=== PATIENT | female | born 1995 | race Caucasian/White ===

== ENCOUNTER 2017-02-13 10:59 | Emergency (ER) | payer MEDICAID, OTHER ==
[~2017-02-13] VITALS: Wt 55.0 kg
--- NOTE | 2017-02-13 11:17 | ERA ---
ER Documentation Chief Complaint Date/Time DATE: 02/13/17 TIME: 11:16 Chief Complaint PT SENT PER PMD FOR IUD PROBLEM, NO BLEEDING HPI The patient is a 21-year-old female, presenting to the ER because of pelvic pain when she woke up this morning. She went to see her physician who sent her to the ER. She had an IUD for about a year, denies previous similar symptoms, denies dysuria, diarrhea, abdominal pain, vomiting. She does not smoke or drink Past medical/surgical history: None ROS All systems reviewed and are negative except as per history of present illness. Allergies Allergies: Coded Allergies: No Known Allergy (Unverified , 10/31/14) PMhx/Soc History of Surgery: No Anesthesia Reaction: No Hx Neurological Disorder: No Hx Respiratory Disorders: No Hx Cardiac Disorders: No Hx Psychiatric Problems: No Hx Miscellaneous Medical Probl: No Hx Alcohol Use: No Hx Substance Use: No Hx Tobacco Use: No Physical Exam Vitals Vital Signs Date Time Temp Pulse Resp B/P Pulse Ox O2 Delivery O2 Flow Rate FiO2 02/13/17 11:02 99.0 87 17 112/63 98 Physical Exam Const: No acute distress. Head: Atraumatic. Eyes: Normal Conjunctiva. ENT: Normal External Ears, Nose and Mouth. Neck: Full range of motion. No meningismus. Resp: Clear to auscultation bilaterally. Cardio: Regular rate and rhythm. Abd: Soft, non distended, normal bowel sounds, minimal suprapubic tenderness, no rigidity, rebound, CVA tenderness Skin: No petechiae or rashes. Back: No midline or flank tenderness. Ext: No cyanosis, or edema. Neur: Awake and alert. No focal deficit Psych: Normal Mood and Affect. Results 24 hrs Laboratory Tests Test 02/13/17 11:32 Bedside Urine pH (LAB) 6.5 Bedside Urine Protein (LAB) Negative Bedside Urine Glucose (UA) Negative Bedside Urine Ketones (LAB) Negative Bedside Urine Blood Negative Bedside Urine Nitrite (LAB) Negative Bedside Urine Leukocyte Esterase (L Trace Procedures/[address] [address] Radiology Main Line: [phone] DIAGNOSTIC IMAGING REPORT Patient: NOEMY QURESHI : 1995 Age: 21 Sex: F MR #: [id number] DOS: 02/13/17 1120 Ordering MD: JOSH MEJIA MD Location: [facility] Room/Bed: PROCEDURE: US Pelvis CLINICAL INDICATION: pelvic pain TECHNIQUE: Multiple sonographic images of the pelvis were obtained utilizing a transabdominal and endovaginal technique. The images were reviewed on a PACS workstation. COMPARISON: None. LMP: 02/01/2017 FINDINGS: The uterus measures 8.3 x 3.8 x 4.9 cm. The endometrial echo complex measures 7 mm in thickness. An appropriately positioned intrauterine device is noted. The right ovary measures 3.0 x 1.7 x 2.0 cm. The left ovary measures 3.8 x 2.4 x 2.9 cm. There is normal vascular flow in both ovaries. No significant ovarian lesions are seen. No significant pelvic free fluid is identified. IMPRESSION: An appropriately positioned intrauterine device is noted. Otherwise, unremarkable pelvic ultrasound. RPTAT: EE Physician Dominga Date Time Electronically viewed and signed by Physician Dominga on 02/13/2017 13:28 RA/ CC: JOSH MEJIA MD MEDICAL MAKING DECISION: The patient is a 21-year-old female, presenting with acute pelvic pain of unclear etiology. The differential diagnoses considered include but are not limited to uterine perforation, cystitis, PID, ovarian cyst, endometriosis, fibroids, appendicitis. Departure Diagnosis: Primary Impression: Pelvic pain Condition: Good Comments I discussed the findings with the patient. I advised the patient to follow-up with the instructional facilitator in about 1-2 days, sooner if needed and return if any concern. JOSH MEJIA MD Feb 13, 2017 11:17
[2017-02-13 11:28] LABS: URINE BLOOD (Dip) POC Negative (NEGATIVE)
--- NOTE | 2017-02-13 13:28 | RADRPT ---
PROCEDURE: US Pelvis CLINICAL INDICATION: pelvic pain TECHNIQUE: Multiple sonographic images of the pelvis were obtained utilizing a transabdominal and endovaginal technique. The images were reviewed on a PACS workstation. COMPARISON: None. LMP: 02/01/2017 FINDINGS: The uterus measures 8.3 x 3.8 x 4.9 cm. The endometrial echo complex measures 7 mm in thickness. A n appropriately positioned intrauterine device is noted. The right ovary measures 3.0 x 1.7 x 2.0 cm. The left ovary measures 3.8 x 2.4 x 2.9 cm. There is no rmal vascular flow in both ovaries. No significant ovarian lesions are seen. No significant pelvic free fluid is identified. IMPRESSION: An appropriately positioned intrauterine device is noted. Otherwise, unremarkable pelvic ultrasound. RPTAT: EE Physician Dominga Date Time Electronically viewed and signed by Physician Dominga on 02/13/2017 13:28 /
== END 2017-02-13 14:07 | disposition home or self-care (01) ==
LOC: FTE 10:59
DX: R10.2 Pelvic and perineal pain (principal)
CPT/HCPCS: 76856; 81003

== ENCOUNTER 2017-04-04 12:54 | Emergency (ER) | END 2017-04-04 15:12 | disposition home or self-care (01) | DX: O20.0 Threatened abortion (principal); Z3A.08 8 weeks gestation of pregnancy | CPT/HCPCS: 36415; 76801; 81001; 84702; 85025; 86900; 86901; 87086; J7030; Z7502 ==

== ENCOUNTER 2017-06-25 12:38 | Outpatient (CLI) | payer MEDICAID ==
[~2017-06-25] VITALS: Ht 160 cm; Wt 52.7 kg
[~2017-06-25 12:38] MED LIST: ACET500C5 PO; CEPH-443 PO
--- NOTE | 2017-06-25 13:13 | RADRPT ---
PROCEDURE: US OB. CLINICAL INDICATION: DFM , pain TECHNIQUE: Transabdominal views of the pelvis are available for review. COMPARISON: 04/04/17 FINDINGS: There is a single intrauterine gestation in a transverse maternal right position. The heart r ate is noted at 140 bpm. The placenta is anterior. The MVP measures 6.4 cm. RPTAT: AA IMPRESSION: Normal MVP. .Zev Travis MD, MD Date Time Electronically viewed and signed by .Zev Travis MD, MD on 06/25/2017 13:13 .S/
[2017-06-25] MEDS ORDERED: PREN-93 PO (14:27)
--- NOTE | 2017-06-25 14:30 | QN ---
Documentation Comment g1 20 weeks co of DFM and WELLS vss exam wnl a/p iup 20 weeks to ER for eval per patients ob doc GARRETT SENA MD Jun 25, 2017 14:30
[2017-06-25 14:31] VITALS: Ht 160 cm; Wt 52.7 kg
[2017-06-25 14:32] VITALS: BP 112/71; PULSE 93; RESP 18
== END 2017-06-25 14:30 | disposition home or self-care (01) ==
LOC: OBT 12:38 → L-D 12:39 → OBT 14:30
PROVIDERS: ATTEND Obstetrics & Gynecology
DX: O36.8120 Decreased fetal movements, second trimester, not applicable or unspecified (principal); O26.892 Other specified pregnancy related conditions, second trimester; R51 Headache; Z3A.20 20 weeks gestation of pregnancy
CPT/HCPCS: 76815; Z7500; G0463

== ENCOUNTER 2017-07-23 22:37 | Outpatient (CLI) | payer MEDICAID ==
[~2017-07-23] VITALS: Ht 160 cm; Wt 54.5 kg
[~2017-07-23 22:37] MED LIST changes: -ACET500C5 PO; -CEPH-443 PO; +PREN-93 PO
[2017-07-23 22:47] VITALS: Ht 160 cm; Wt 54.5 kg
[2017-07-23 23:09] VITALS: BP 110/67; PULSE 82; RESP 20
[2017-07-23 23:42] LABS: BASOPHIL # 0.1 10^3/ul (0.0-0.1); BASOPHILS % 0.5 % (0.0-2.0); EOSINOPHILS # 0.1 10^3/ul (0.0-0.5); EOSINOPHILS % 0.9 % (0.0-7.0); HEMATOCRIT 31.6 % (37.0-47.0); HEMOGLOBIN 10.8 g/dl (12.0-16.0); LYMPHOCYTES # 3.8 10^3/ul (0.8-2.9); MEAN CORPUSCULAR HEMOGLOBIN 29.7 pg (29.0-33.0); MEAN CORPUSCULAR HGB CONC 34.2 g/dl (32.0-37.0); MEAN CORPUSCULAR VOLUME 86.8 fl (82.0-101.0); MEAN PLATELET VOLUME 10.4 fl (7.4-10.4); MONOCYTE # 0.8 10^3/ul (0.3-0.9); MONOCYTES % 6.6 % (0.0-11.0); NEUTROPHIL # 7.8 10^3/ul (1.6-7.5); NEUTROPHILS % 60.9 % (39.0-77.0); PLATELET COUNT 262 10^3/UL (140-415); RED BLOOD COUNT 3.64 10^6/ul (4.20-5.40); RED CELL DISTRIBUTION WIDTH 13.3 % (11.5-14.5); WHITE BLOOD COUNT 12.8 10^3/ul (4.8-10.8)
--- NOTE | 2017-07-23 23:46 | RADRPT ---
PROCEDURE: US OB placenta CLINICAL INDICATION: Vaginal bleeding. Clinical estimate gestational age is 24 weeks 4 days with estimated date of delivery 11/08/2017 TECHNIQUE: Multiple sonographic images of the pelvis were obtained. The images were reviewed on a PACS workstation. COMPARISON: US PELVIS 06/25/2017 FINDINGS: The cervix is closed with a length of 4 cm on transvaginal ultrasound. There is a single live intrauterine gestation. Cardiac activity is present with 152 beats per minut e. There is a cephalic position. . The placenta is anterior and grade 2. There is no evidence for an abruption. IMPRESSION: Single live intrauterine gestation. Placenta anterior and grade 2. No evidence of placental abruptio n. RPTAT: HJES .Balwinder Sherman MD, Date Time Electronically viewed and signed by .Balwinder Sherman MD, on 07/23/2017 23:45 .S/
[2017-07-24 00:02] LABS: ALBUMIN 3.4 g/dl (3.3-4.9); BILIRUBIN,INDIRECT 0.3 mg/dl (0-1.1); BILIRUBIN,TOTAL 0.3 mg/dl (0.2-1.3); CALCIUM 9.4 mg/dl (8.4-10.2); CREATININE 0.51 mg/dl (0.44-1.00); POTASSIUM 3.7 mmol/L (3.5-5.1); TOTAL PROTEIN 6.8 g/dl (6.1-8.1)
[2017-07-24 00:30] LABS: ADD UMIC YES; UR ASCORBIC ACID NEGATIVE (NEGATIVE); UR BACTERIA FEW /HPF (NONE SEEN); UR BILIRUBIN (Dip) NEGATIVE (NEGATIVE); UR BLOOD (Dip) NEGATIVE (NEGATIVE); UR CLARITY CLEAR (CLEAR); UR COLOR COLORLESS (YELLOW); UR GLUCOSE (Dip) NEGATIVE (NEGATIVE); UR KETONES (Dip) NEGATIVE (NEGATIVE); UR LEUKOCYTE ESTERASE (Dip) 3+ Leu/ul (NEGATIVE); UR NITRITE (Dip) NEGATIVE (NEGATIVE); UR RBC 2 /HPF (0-5); UR SPECIFIC GRAVITY (Dip) 1.003 (1.003-1.030); UR TOTAL PROTEIN (Dip) NEGATIVE (NEGATIVE); UR UROBILINOGEN (Dip) NEGATIVE (NEGATIVE)
--- NOTE | 2017-07-24 01:11 | PN ---
Triage Information Date/Time Reason for visit: Abd/pelvic pain Weeks of Gestation Patient is a 21-year-old 2 para 1 at 24 weeks and 4 days of gestation with estimated date of delivery November 08, 2017 Patient presents with chief complaint of abdominal pain and vaginal spotting She reports positive movement /Para 2 para 1 Diabetes: none Hypertention: none Objective Vital Signs Date Time Temp Pulse Resp B/P Pulse Ox O2 Delivery O2 Flow Rate FiO2 07/23/17 23:09 98.3 82 20 110/67 Room Air Heart Rate: 140's Contractions: None Results/Medications Result Diagram: 07/23/17 23207/23/17 2320 Results 24 hrs Laboratory Tests Test 07/23/17 23:00 07/23/17 23:20 Urine Color COLORLESS Urine Clarity CLEAR Urine pH 8.0 Urine Specific [place] 1.003 Urine Ketones NEGATIVE Urine Nitrite NEGATIVE Urine Bilirubin NEGATIVE Urine Urobilinogen NEGATIVE Urine Leukocyte Esterase 3+ H Urine Microscopic RBC 2 Urine Microscopic WBC 6 H Urine Bacteria FEW A Urine Hemoglobin NEGATIVE Urine Glucose NEGATIVE Urine Total Protein NEGATIVE White Blood Count 12.8 #H Red Blood Count 3.64 L Hemoglobin 10.8 L Hematocrit 31.6 L Mean Corpuscular Volume 86.8 Mean Corpuscular Hemoglobin 29.7 Mean Corpuscular Hemoglobin Concent 34.2 Red Cell Distribution Width 13.3 Platelet Count 262 Mean Platelet Volume 10.4 Neutrophils % 60.9 Lymphocytes % 30.0 Monocytes % 6.6 Eosinophils % 0.9 Basophils % 0.5 Nucleated Red Blood Cells % 0.0 Neutrophils # 7.8 H Lymphocytes # 3.8 H Monocytes # 0.8 Eosinophils # 0.1 Basophils # 0.1 Nucleated Red Blood Cells # 0.0 Sodium Level 137 Potassium Level 3.7 Chloride Level 106 Carbon Dioxide Level 23 Anion Gap 12 Blood Urea Nitrogen 7 Creatinine 0.51 Glucose Level 88 Calcium Level 9.4 Total Bilirubin 0.3 Direct Bilirubin 0.00 Indirect Bilirubin 0.3 Aspartate Amino Transf (AST/SGOT) 18 Alanine Aminotransferase (ALT/SGPT) 34 Alkaline Phosphatase 81 Total Protein 6.8 Albumin 3.4 Globulin 3.40 H Albumin/Globulin Ratio 1.00 Imaging Results PROCEDURE: US OB placenta CLINICAL INDICATION: Vaginal bleeding. Clinical estimate gestational age is 24 weeks 4 days with estimated date of delivery 11/08/2017 TECHNIQUE: Multiple sonographic images of the pelvis were obtained. The images were reviewed on a PACS workstation. COMPARISON: US PELVIS 06/25/2017 FINDINGS: The cervix is closed with a length of 4 cm on transvaginal ultrasound. There is a single live intrauterine gestation. Cardiac activity is present with 152 beats per minute. There is a cephalic position. . The placenta is anterior and grade 2. There is no evidence for an abruption. IMPRESSION: Single live intrauterine gestation. Placenta anterior and grade 2. No evidence of placental abruption. RPTAT: HJES .Balwinder Sherman MD, MD Date Time Electronically viewed and signed by .Balwinder Sherman MD, MD on 07/23/2017 23:45 .S/ CC: LESLIE MONTOYA MD Disposition: Discharge Assessment/Plan UA indicating positive leukocytes, will send for urine culture Cervical length and placenta within normal limits Patient to be discharged home She was instructed to follow-up with her own SEBD TEACHER in 2 days [place]NA SOTELO MD Jul 24, 2017 01:11
--- NOTE | 2017-07-24 01:21 | TRIAGE ---
OB Triage Datetime Report Generated by CPN: 07/24/2017 01:21 Datetime: 07/24/2017 00:58 Stage of : OB Triage Labor Evaluation Frequency: 0 Monitor Mode: External Resting Tone Shaw: Relaxed Heart Rate FHR Baseline Rate: 135 Monitor Mode: External US Variability: Moderate 6-25 bpm Accelerations: 15X15 Decelerations: None Category: Category I Pain Assessment Pain Scale: 0 Pain Presence: None/Denies Pain Type: N/A Datetime: 07/24/2017 00:51 Stage of : OB Triage Datetime: 07/24/2017 00:49 Stage of : OB Triage Datetime: 07/24/2017 00:45 Stage of : OB Triage Pain Assessment Pain Scale: 0 Pain Presence: None/Denies Pain Type: N/A Datetime: 07/23/2017 23:33 Stage of : OB Triage Monitor Mode: External Monitor Mode: External US Datetime: 07/23/2017 22:50 Stage of : OB Triage Assessment Type: Triage Maternal Assessment Level of Consciousness: Fully Conscious Headache: Denies Blurred Vision: No Respiratory Effort: Unlabored; Regular Rhythm; Equal Expansion Nausea/Vomiting: Denies RUQ Epigastric Pain: Denies Facial Edema: None Fall Risk Assessment History of Falling: (0) No Secondary Diagnosis: (0) No Ambulatory Aid: (0) Bedrest/Nurse Assist IV Therapy: (0) No Gait: (0) Normal/Bedrest/Immobile Mental Status: (0) Oriented to Own Ability Fall Score: 0 Fall Risk Score Definition: No Risk: No action required Monitor Mode: Palpation Resting Tone Shaw: Relaxed Contraction Comments: EXTERNAL MONITOR APPLIED Monitor Mode: External US Comments: EFM APPLIED Datetime: 07/23/2017 22:31 Time of Arrival: 07/23/2017 22:31 EGA: 24.4 Arrived By: Wheelchair Arrived From: Home Chief Complaint: VAGINAL BLEEDING W/ LOWER ABD PAIN SINCE 21:00 Movement: Decreased Contractions: Denies/Absent Rupture of Membranes: Denies Vaginal Bleeding: Scant Vaginal Discharge: Denies Recent Sexual Intercouse: Denies Abdominal Trauma: Not Applicable Patient Complaints: Cramping Initial Plan: EFM, CALL OB, CBC, CMP, UA, UCULT, CL, PLACENTA Datetime: 06/25/2017 14:00 Assessment Type: Triage Maternal Assessment Level of Consciousness: Fully Conscious DTR's/Clonus: DTRs 2+; No Clonus Headache: Denies Blurred Vision: No Respiratory Effort: Unlabored; Regular Rhythm; Equal Expansion Breath Sounds, Left: Clear and Equal Breath Sounds, Right: Clear and Equal Nausea/Vomiting: Denies RUQ Epigastric Pain: Denies Lower Extremities Edema: None Degree: None Upper Extremities Edema: None Degree: None Facial Edema: None Fall Risk Assessment History of Falling: (0) No Secondary Diagnosis: (0) No Ambulatory Aid: (0) Bedrest/Nurse Assist IV Therapy: (0) No Gait: (0) Normal/Bedrest/Immobile Mental Status: (0) Oriented to Own Ability Fall Score: 0 Fall Risk Score Definition: No Risk: No action required Datetime: 06/25/2017 13:00 Stage of : OB Triage Assessment Type: Triage Maternal Assessment Level of Consciousness: Fully Conscious DTR's/Clonus: DTRs 2+; No Clonus Headache: Denies Blurred Vision: No Respiratory Effort: Unlabored; Regular Rhythm; Equal Expansion Breath Sounds, Left: Clear and Equal Breath Sounds, Right: Clear and Equal Nausea/Vomiting: Denies RUQ Epigastric Pain: Denies Lower Extremities Edema: None Degree: None Upper Extremities Edema: None Degree: None Facial Edema: None Temperature Route: Axillary Fall Risk Assessment History of Falling: (0) No Secondary Diagnosis: (0) No Ambulatory Aid: (0) Bedrest/Nurse Assist IV Therapy: (0) No Gait: (0) Normal/Bedrest/Immobile Mental Status: (0) Oriented to Own Ability Fall Score: 0 Fall Risk Score Definition: No Risk: No action required Monitor Mode: External Pain Assessment Pain Scale: 7 Pain Presence: Constant Pain Type: Dull Pain Location: Coccyx Pain Goal: 2 Pain Relief Measures: Comfort Measures Datetime: 06/25/2017 12:57 Time of Arrival: 06/25/2017 12:30 EGA: 20.4 Arrived By: Ambulatory Arrived From: Home Chief Complaint: DIZZY, WELLS, DFM, NAUSEA PAINI Movement: Decreased Contractions: Denies/Absent Vaginal Bleeding: None Vaginal Discharge: Denies Recent Sexual Intercouse: Denies Patient Complaints: Back Pain Additional Patient Complaints: HIP PAIN 03/29 Time Provider Notified: 06/25/2017 13:00 Provider Notified: DR. MONTOYA
== END 2017-07-24 01:14 | disposition home or self-care (01) ==
LOC: OBT 22:37 → L-D 22:39 → OBT 07-24 01:14
PROVIDERS: ATTEND Obstetrics & Gynecology
DX: O20.8 Other hemorrhage in early pregnancy (principal); O26.892 Other specified pregnancy related conditions, second trimester; Z3A.24 24 weeks gestation of pregnancy; R10.2 Pelvic and perineal pain
CPT/HCPCS: 76815; 76817; 80053; 81001; 85025; 87086